=== PATIENT | female | born 1955 | race Caucasian/White ===

== ENCOUNTER 2022-01-11 07:38 | Outpatient (CLI) | payer OTHER, SELFPAY ==
[2022-01-11 11:18] LABS: Alanine Aminotransferase* 13 U/L (4-35); Aspartate Amino Transferase* 21 U/L (12-35); Cholesterol* 210 mg/dL (90-199); Triglycerides* 125 mg/dL (40-149)
[2022-01-11 11:19] LABS: HDL Cholesterol* 47 mg/dL (>=50); LDL Cholesterol Calculated 138 mg/dL (<100)
== END 2022-01-11 07:39 | disposition home or self-care (01) ==
PROVIDERS: PCP Internal Medicine; Visit Provider Internal Medicine
DX: R73.03 Prediabetes (principal); E78.5 Hyperlipidemia, unspecified; F41.9 Anxiety disorder, unspecified
CPT/HCPCS: 80061; 84450; 84460

== ENCOUNTER 2022-02-06 15:10 | Outpatient (CLI) | payer OTHER, SELFPAY ==
--- OUTSIDE RECORDS SUMMARY | 2022-02-06 15:11 | XMS_ITS | Clinical Summary ---
:1955 Author Organization [facility] [place] [address] Care Team Providers Name Role Phone Pcp, No Primary Care Provider Unavailable Allergies No known active allergies Medications Not on file Active Problems Not on file Social History Tobacco Use Types Packs/Day Years Used Date Never Smoker Smokeless Tobacco: Never Used Sex Assigned at Date Recorded Not on file Obstetrics History Last Filed Vital Signs Vital Sign Reading Time Taken Comments Blood Pressure 114/78 12/11/2016 3:01 PM CDT Pulse 67 12/11/2016 3:01 PM CDT Temperature - - Respiratory Rate 12 12/11/2016 3:01 PM CDT Oxygen Saturation 96% 12/11/2016 3:01 PM CDT Inhaled Oxygen Concentration - - Weight 72.1 kg (158 lb 14.4 oz) 12/11/2016 3:01 PM CDT Height 165.1 cm (5' 5) 12/11/2016 3:01 PM CDT Body Mass Index 26.44 12/11/2016 3:01 PM CDT Plan of Treatment Health Maintenance Due Date Last Done Comments COVID-19 vaccine series (#1) 1955 Tdap 1966 Depression screening for age 12+ 1967 Hepatitis C screening for age 18-79 1973 Tetanus booster 1975 Colonoscopy through age 75 2000 Lipids for age 45-75 2000 Mammogram for age 45-75 2000 Zoster (shingles) series for age 50+ (1 of 2) 2005 BMI (ht and wt on same day) for age 18+ 12/11/2017 12/12/19 17 DEXA/DXA scan for age 65+ 2020 Pneumococcal series for age 65+ (1 - PCV) 2020 Influenza for age 65+ 01/10/2022 Results Not on filefrom Last 3 Months Insurance Payer Benefit Plan / Subscriber ID Effective Dates Phone Addre ss Type Group PREFERRED ONE PREFERRED ONE 2013-Present [address] [place] [address] 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
--- NOTE | 2022-02-06 15:20 | CRLHL7_ITS ---
For Patients: As a result of the Century Cures Act, medical imaging exams and procedure reports are released immediately into your electronic medical record. You may view this report before your referring provider. If you have questions, please contact your health care provider. BILATERAL SCREENING MAMMOGRAM WITH COMPUTER-AIDED DETECTION AND TOMOSYNTHESIS TECHNIQUE: CC and MLO views were obtained. These mammographic images have been obtained using full-field digital technique. These mammographic images were interpreted with the benefit of computer-aided detection. Breast Tomosynthesis was used in this interpretation. COMPARISON FILM: 01/31/21, 01/31/20, 01/07/19. FINDINGS: The breasts are heterogeneously dense, which may obscure small masses IMPRESSION: There is no radiographic evidence for malignancy. ASSESSMENT: BI-RADS Category 1: Negative RECOMMENDATION: Routine screening mammogram in 1 year. A lay language report of this examination will be provided to the patient. Florin Lane M.D. Diagnostic Radiologist [email or web address] MER/Dictated by: Florin Lane MD @ 02/07/2022 12:49:00 PM (Electronically Signed)
== END 2022-02-06 15:11 | disposition home or self-care (01) ==
LOC: MAMMO 15:10
PROVIDERS: PCP Internal Medicine; Visit Provider Internal Medicine
DX: Z12.31 Encounter for screening mammogram for malignant neoplasm of breast (principal); R92.2 Inconclusive mammogram
CPT/HCPCS: 77063; 77067

== ENCOUNTER 2022-07-17 07:50 | Outpatient (CLI) | payer OTHER, SELFPAY | END 2022-07-17 07:51 | disposition home or self-care (01) | LOC: NFLDREF 07-19 13:45 | PROVIDERS: PCP Internal Medicine; Visit Provider Internal Medicine | DX: R73.03 Prediabetes (principal); E78.5 Hyperlipidemia, unspecified; F41.1 Generalized anxiety disorder | CPT/HCPCS: 80061; 84450; 84460 ==

== ENCOUNTER 2023-02-03 07:53 | Outpatient (CLI) | payer OTHER, SELFPAY | END 2023-02-03 07:54 | disposition home or self-care (01) | LOC: NFLDREF 02-05 06:30 | PROVIDERS: PCP Internal Medicine; Referring Provider Internal Medicine; Visit Provider Internal Medicine | DX: R73.03 Prediabetes (principal); E78.5 Hyperlipidemia, unspecified | CPT/HCPCS: 80053; 80061 ==

== ENCOUNTER 2023-02-10 10:59 | Outpatient (CLI) | payer OTHER, SELFPAY ==
--- NOTE | 2023-02-10 11:30 | CRLHL7_ITS ---
For Patients: As a result of the Century Cures Act, medical imaging exams and procedure reports are released immediately into your electronic medical record. You may view this report before your referring provider. If you have questions, please contact your health care provider. BILATERAL SCREENING MAMMOGRAM WITH COMPUTER-AIDED DETECTION AND TOMOSYNTHESIS TECHNIQUE: CC and MLO views were obtained. These mammographic images have been obtained using full-field digital technique. These mammographic images were interpreted with the benefit of computer-aided detection. Breast Tomosynthesis was used in this interpretation. COMPARISON FILM: 02/06/22, 01/31/21, 01/31/20 FINDINGS: The breasts are heterogeneously dense, which may obscure small masses IMPRESSION: There is no radiographic evidence for malignancy. ASSESSMENT: BI-RADS Category 1: Negative RECOMMENDATION: Routine screening mammogram in 1 year. A lay language report of this examination will be provided to the patient. Florin Lane M.D. Diagnostic Radiologist [email or web address] PT/Dictated by: Florin Lane MD @ 02/10/2023 12:03:00 PM (Electronically Signed)
== END 2023-02-10 11:00 | disposition home or self-care (01) ==
LOC: MAMMO 10:59
PROVIDERS: PCP Internal Medicine; Visit Provider Internal Medicine
DX: Z12.31 Encounter for screening mammogram for malignant neoplasm of breast (principal); R92.2 Inconclusive mammogram
CPT/HCPCS: 77063; 77067

== ENCOUNTER 2023-07-30 07:31 | Outpatient (CLI) | payer OTHER, SELFPAY | END 2023-07-30 07:32 | disposition home or self-care (01) | LOC: NFLDREF 12:03 | PROVIDERS: PCP Internal Medicine; Referring Provider Internal Medicine; Visit Provider Internal Medicine | DX: R73.03 Prediabetes (principal); M85.80 Other specified disorders of bone density and structure, unspecified site; E78.5 Hyperlipidemia, unspecified; F41.1 Generalized anxiety disorder; F10.21 Alcohol dependence, in remission | CPT/HCPCS: 80061; 82306; 84450; 84460 ==

== ENCOUNTER 2023-10-09 12:55 | Outpatient (CLI) | payer OTHER, SELFPAY ==
--- OUTSIDE RECORDS SUMMARY | 2023-10-09 12:57 | XMS_ITS | Clinical Summary ---
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 Role Phone Pcp, No Primary Care Provider Unavailabl e Allergies No known active allergies Social History Tobacco Use Types Packs/Day Years Used Date Smoking Tobacco: Never Smokeless Tobacco: Never Sex and Gender Information Value Date Recorded Sex Assigned at Not on file Gender Identity Not on file Sexual Orientation Not on file Obstetrics History Last Filed [...] Health Maintenance Due Date Last Done Comments Tdap 1966 Depression screening for age 12+ 1967 Hepatitis C screening for age 18-79 1973 Tetanus booster 1975 Colonoscopy through age 75 2000 Lipids for age 45-75 2000 Mammogram for age 45-75 2000 Zoster (shingles) series for age 50+ (1 of 2) 06/19/19 06 BMI (ht and wt on same day) for age 18+ 12/11/2017 0 12/11/2016 DEXA/DXA scan for age 65+ 2020 Pneumococcal series for age 65+ (1 of 1 - PCV) 021 COVID-19 vaccine series (2022-24 season) 3 Influenza for age 65+ 01/11/2024 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 PCP - General 11/08/16
--- NOTE | 2023-10-09 13:00 | CRLHL7_ITS ---
For Patients: As a result of the Century Cures Act, medical imaging exams and procedure reports are released immediately into your electronic medical record. You may view this report before your referring provider. If you have questions, please contact your health care provider. DXA BONE MINERAL DENSITY STUDY Current height (in): 65.0. Weight (lb): 152.0. Menopause age: 55. Ethnicity: White. Reason for exam: Osteopenia. 1. Have you had a previous hip or vertebral fracture? No. 2. Have you had any fractures during your adult life which did not result from significant trauma (e.g., auto accident)? No. 3. Did either of your parents have a hip fracture? No. 4. Do you smoke? No. 5. Have you ever taken Glucocorticoids? No. 6. Do you have rheumatoid arthritis? No. 7. Do you have secondary osteoporosis? No. 8. Do you drink 3 or more alcoholic drinks per day? No. 9. Are you being treated for osteoporosis? No. 10. Have you ever taken any of the following medications: Actonel, Evista, Fosamax, Miacalcin, Reclast, Boniva, Forteo, HRT (i.e. estrogen/hormone therapy), Protelos, Prolia, Vitamin D, Calcium, other ??? please specify. ANSWER: Yes, calcium, vitamin D. 11. Do you have any of the following medical conditions: Anorexia or bulimia, asthma or emphysema, end stage renal disease, hyperparathyroidism, any seizure disorders, cancer, inflammatory bowel diseases, hysterectomy, other ??? please specify. ANSWER: No. 12. What was your maximum height (inches)? 65.5. 13. Do you perform weight bearing exercise regularly? Yes. 14. Do you regularly consume dairy products? No. 15. Do you drink caffeinated beverages? Yes. 16. At what age did your period start? 14. 17. Are you premenopausal? No. 18. How many full term pregnancies have you had? 2. 19. Have you ever missed your period for more than 6 months in a row (not including or menopause)? No. TECHNIQUE: Bone mineral density study was performed using the [employer]. FINDINGS: The results of the study expressed as bone mineral density (BMD) are as follows: Lumbar spine L1 to L4: BMD: 0.887 g/cm2. T-score: -1.5. Z-score: 0.5 Neck Left: BMD: 0.647 g/cm2. T-score: -1.8. Z-score: -0.1 Right: BMD: 0.633 g/cm2. T-score: -1.9. Z-score: -0.2 Total Left: BMD: 0.860 g/cm2. T-score: -0.7. Z-score: 0.7 Right: BMD: 0.857 g/cm2. T-score: -0.7. Z-score: 0.7 IMPRESSION: Osteopenia. *Comparison exams done prior to 10/2019 were performed on different unit, [employer]. COMPARISON: Compared with scan of 11/23/2020, the bone mineral density has increased by 2.9 percent at the spine and decreased by 0.8 percent at the hip. FRAX 10-year Fracture Risk Major Osteoporotic Fracture: 11 percent Hip Fracture: 1.9 percent Reported Risk Factors: [place] () Neck BMD = 0.633, BMI = 25.[address] M[address] Diagnostic Radiologist [email or web address] Transcribed: 10:40 am DW/Dictated by: Florin Lane MD @ 10/13/2023 9:44:00 AM (Electronically Signed)
== END 2023-10-09 12:56 | disposition home or self-care (01) ==
PROVIDERS: PCP Internal Medicine; Visit Provider Internal Medicine
DX: M85.88 Other specified disorders of bone density and structure, other site (principal); M85.89 Other specified disorders of bone density and structure, multiple sites
CPT/HCPCS: 77080